=== PATIENT | male | born 1965 | race Caucasian/White ===

== ENCOUNTER 2018-08-03 18:49 | Inpatient (IN) | payer MEDICAID, MEDICARE, SELFPAY ==
[~2018-08-03] VITALS: Ht 182.9 cm; Wt 72.0 kg
[2018-08-03] MEDS ORDERED: ASPIRIN 81 MG TABLET EC ONE (19:06)
[2018-08-03] MEDS ORDERED: ASPIRIN 81 MG TABLET CHEW PO ONE (19:30)
[2018-08-03 19:58] LABS: ALANINE AMINOTRANSFERASE 77 U/L (12-78); ALBUMIN 3.1 g/dL (3.4-5.0); ANION GAP 6 mmol/L (5-15); CALCIUM 8.2 mg/dL (8.5-10.1); CHLORIDE 113 mmol/L (98-107); CREATININE 0.62 mg/dL (0.7-1.3)
[2018-08-03 20:00] LABS: MEAN CORPUSCULAR HEMOGLOBIN 33.2 pg (27.5-34.5); MEAN CORPUSCULAR HGB CONC 33.8 g/dL (33.2-36.2); MEAN CORPUSCULAR VOLUME 98.1 fL (81-97); MEAN PLATELET VOLUME 8.6 fL (7.4-10.4); PLATELET COUNT 220 x10^3/uL (130-400); RED BLOOD COUNT 4.31 x10^6/uL (4.38-5.82); RED CELL DISTRIBUTION WIDTH 13.9 % (9.4-14.8)
[2018-08-03 20:02] LABS: ALKALINE PHOSPHATASE 64 U/L (45-117); BILIRUBIN,TOTAL 0.1 mg/dL (0.2-1.0); MD YES; TOTAL PROTEIN 7.1 g/dL (6.4-8.2)
[2018-08-03 20:04] LABS: <RBC MORPHOLOGY> NORMAL; BAND#(MANUAL) 0.04 x10^3/uL; BANDS%(MANUAL) 1 % (0-7); EOS#(MANUAL) 0.26 x10^3/uL (0.0-0.4); EOS% (MANUAL) 6 % (1-7); LYMPH#(MANUAL) 1.76 x10^3/uL (1-3.4); LYMPHS% (MANUAL) 40 % (22-44); MONOS#(MANUAL) 0.44 x10^3/uL (0.3-2.7); MONOS% (MANUAL) 10 % (2-9); REACTIVE LYMPHS # (MANUAL) 0.13 x10^3/uL (0-0); REACTIVE LYMPHS % (MANUAL) 3 % (0-0); SEG#(MANUAL) 1.76 x10^3/uL (1.8-6.8); SEGS% (MANUAL) 40 % (42-75)
[2018-08-03 20:05] LABS: <PLATELET ESTIMATE> ADEQUATE; SMALL PLATELETS 1+
[2018-08-03 20:09] LABS: TROPONIN I 0.227 ng/mL (0.000-0.045)
[2018-08-03] MEDS ORDERED: SODIUM CHLORIDE FLUSH 10ML SYR IVF ONE (20:30)
[2018-08-03] MEDS ORDERED: SODIUM CHLORIDE FLUSH 10ML SYR IVF PRN (21:00)
[2018-08-03] MEDS ORDERED: ONDANSETRON ODT 4 MG PO PRN (21:30)
[2018-08-03] MEDS ORDERED: NITROGLYCERIN 0.4 MG BOTTLE (25 TABS) SL PRN (21:30)
[2018-08-03] MEDS ORDERED: ENOXAPARIN 80 MG/0.8 ML SQ ONE (21:30)
[2018-08-03] MEDS ORDERED: POLYETHYLENE GLYCOL 17 GM PACKET PO PRN (21:30)
[2018-08-03] MEDS ORDERED: morphine SULFATE 10 MG/ML, 1ML IVPush PRN (21:30)
[2018-08-03] MEDS ORDERED: BISACODYL 10 MG SUPP PR PRN (21:30)
[2018-08-03] MEDS: NICOTINE 14MG/24 HR PATCH.TD24 TD SCH (21:48)
[2018-08-03 21:49] VITALS: BP 128/94
[2018-08-03] MEDS: SODIUM CHLORIDE FLUSH 10ML SYR IVF SCH (21:49)
[2018-08-03 22:11] LABS: FOLATE LEVEL 13.1 ng/mL (3.1-17.5)
[2018-08-04] VITALS (7 sets, daily range): BP systolic 106–139; BP diastolic 74–88
[2018-08-04] MEDS: ACETAMINOPHEN 325 MG TABLET PO PRN ×2 (01:19→09:56)
[2018-08-04 02:15] LABS: TROPONIN I 0.228 ng/mL (0.000-0.045)
[2018-08-04] MEDS ORDERED: DILTIAZEM 5 MG/ML, 10ML IVPush ONE (02:30)
[2018-08-04] MEDS ORDERED: DILTIAZEM 5 MG/ML, 10ML IV ONE (02:30)
[2018-08-04 02:35] LABS: ALANINE AMINOTRANSFERASE 69 U/L (12-78); ALBUMIN 2.9 g/dL (3.4-5.0); ANION GAP 8 mmol/L (5-15); CHLORIDE 113 mmol/L (98-107); CHOLESTEROL, TOTAL 156 mg/dL (140-239); CREATININE 0.57 mg/dL (0.7-1.3)
[2018-08-04 02:45] LABS: ALKALINE PHOSPHATASE 57 U/L (45-117); CHOL/HDL RATIO 2.1; HDL CHOL % 49 % (26-37); HDL CHOLESTEROL (DIRECT) 76 mg/dL (40-60); LDL CHOLESTEROL,CALCULATED 63 mg/dL (54-169); LDL/HDL RATIO 0.8 (0.5-3.0); TOTAL PROTEIN 6.7 g/dL (6.4-8.2); TRIGLYCERIDES 83 mg/dL (50-200); VLDL CHOLESTEROL 17 mg/dL (0-25)
[2018-08-04 02:46] LABS: BILIRUBIN,TOTAL < 0.1 mg/dL (0.2-1.0)
[2018-08-04 02:53] LABS: MEAN CORPUSCULAR HEMOGLOBIN 32.3 pg (27.5-34.5); MEAN CORPUSCULAR HGB CONC 33.1 g/dL (33.2-36.2); MEAN CORPUSCULAR VOLUME 97.8 fL (81-97); MEAN PLATELET VOLUME 9.2 fL (7.4-10.4); PLATELET COUNT 217 x10^3/uL (130-400); RED BLOOD COUNT 4.14 x10^6/uL (4.38-5.82)
[2018-08-04 03:08] LABS: MD YES
[2018-08-04 03:14] LABS: <PLATELET ESTIMATE> ADEQUATE; <RBC MORPHOLOGY> NORMAL; BASOS#(MANUAL) 0.04 x10^3/uL (0-0.1); BASOS% (MANUAL) 1 % (0-1); EOS#(MANUAL) 0.26 x10^3/uL (0.0-0.4); EOS% (MANUAL) 6 % (1-7); LYMPH#(MANUAL) 2.16 x10^3/uL (1-3.4); LYMPHS% (MANUAL) 49 % (22-44); MONOS#(MANUAL) 0.35 x10^3/uL (0.3-2.7); MONOS% (MANUAL) 8 % (2-9); REACTIVE LYMPHS # (MANUAL) 0.18 x10^3/uL (0-0); REACTIVE LYMPHS % (MANUAL) 4 % (0-0); SEG#(MANUAL) 1.41 x10^3/uL (1.8-6.8); SEGS% (MANUAL) 32 % (42-75)
[2018-08-04 03:15] LABS: SMALL PLATELETS 1+
[2018-08-04] MEDS ORDERED: DILTIAZEM 125 MG in SODIUM CHLORIDE 0.9% 100 ML IV SCH (03:30)
[2018-08-04] MEDS ORDERED: DILTIAZEM 5 MG/ML, 5ML IV ONE (03:30)
[2018-08-04] MEDS ORDERED: CARVEDILOL 3.125 MG TABLET ONE (03:47)
[2018-08-04] MEDS: CARVEDILOL 3.125 MG TABLET PO SCH ×2 (06:02→17:23)
[2018-08-04 08:44] LABS: TROPONIN I 0.228 ng/mL (0.000-0.045)
[2018-08-04] MEDS ORDERED: REGADENOSON 0.4 MG/5 ML SYRINGE ONE (08:47)
[2018-08-04] MEDS ORDERED: LORazepam 0.5MG TABLET PO PRN (09:00)
[2018-08-04] MEDS ORDERED: LORazepam 2 MG/ML, 1ML IV PRN ×4 (09:00)
[2018-08-04] MEDS ORDERED: LORazepam 1MG TABLET PO PRN ×3 (09:00)
[2018-08-04] MEDS ORDERED: DIGOXIN 0.25 MG/ML, 2ML IVPush ONE (09:30)
[2018-08-04] MEDS: SENNA/DOCUSATE TABLET PO SCH (09:31)
[2018-08-04] MEDS: methylPREDNISolone SOD SUCC 125 MG/2 ML IVPush SCH ×2 (09:31→17:24)
[2018-08-04] MEDS: FOLIC ACID 1 MG TABLET PO SCH (09:32)
[2018-08-04] MEDS: THIAMINE 100MG TABLET PO SCH (09:32)
[2018-08-04] MEDS ORDERED: ALBUTEROL/IPRATROPIUM 2.5MG/0.5MG, 3 ML ONE (09:32)
[2018-08-04] MEDS: ASPIRIN 81 MG TABLET CHEW PO SCH (09:32)
[2018-08-04] MEDS: MULTIVITAMIN 1 TABLET PO SCH (09:32)
[2018-08-04] MEDS: SODIUM CHLORIDE FLUSH 10ML SYR IVF SCH ×2 (09:32→20:43)
[2018-08-04] MEDS: DILTIAZEM 125 MG in SODIUM CHLORIDE 0.9% 100 ML IV SCH ×2 (09:33→15:23)
[2018-08-04] MEDS: ALBUTEROL/IPRATROPIUM 2.5MG/0.5MG, 3 ML NPPB SCH ×3 (11:00→19:45)
[2018-08-04] MEDS: DOXYCYCLINE 100MG TABLET PO SCH ×2 (13:42→20:43)
[2018-08-04] MEDS: ENOXAPARIN 80 MG/0.8 ML SQ SCH (15:25)
[2018-08-04] MEDS: NICOTINE 14MG/24 HR PATCH.TD24 TD SCH (20:44)
[2018-08-05 00:30] VITALS: BP 134/81
[2018-08-05] MEDS: ALBUTEROL/IPRATROPIUM 2.5MG/0.5MG, 3 ML NPPB SCH ×5 (00:34→21:15)
[2018-08-05] MEDS: methylPREDNISolone SOD SUCC 125 MG/2 ML IVPush SCH ×2 (01:20→08:41)
[2018-08-05] MEDS: ACETAMINOPHEN 325 MG TABLET PO PRN ×2 (01:29→22:02)
[2018-08-05] MEDS: DILTIAZEM 125 MG in SODIUM CHLORIDE 0.9% 100 ML IV SCH (03:42)
[2018-08-05] MEDS: ENOXAPARIN 80 MG/0.8 ML SQ SCH ×2 (03:43→15:33)
[2018-08-05 05:23] VITALS: BP 126/73
[2018-08-05] MEDS: CARVEDILOL 3.125 MG TABLET PO SCH ×2 (05:25→17:30)
[2018-08-05 06:08] LABS: ALBUMIN 2.9 g/dL (3.4-5.0); ANION GAP 8 mmol/L (5-15); CALCIUM 8.1 mg/dL (8.5-10.1); CHLORIDE 108 mmol/L (98-107)
[2018-08-05 06:12] LABS: ALANINE AMINOTRANSFERASE 51 U/L (12-78); ALKALINE PHOSPHATASE 52 U/L (45-117); BILIRUBIN,TOTAL 0.2 mg/dL (0.2-1.0); CREATININE 0.54 mg/dL (0.7-1.3); TOTAL PROTEIN 6.8 g/dL (6.4-8.2)
[2018-08-05 06:18] LABS: MEAN CORPUSCULAR HEMOGLOBIN 33.1 pg (27.5-34.5); MEAN CORPUSCULAR HGB CONC 33.6 g/dL (33.2-36.2); MEAN CORPUSCULAR VOLUME 98.6 fL (81-97); MEAN PLATELET VOLUME 9.6 fL (7.4-10.4); PLATELET COUNT 239 x10^3/uL (130-400); RED BLOOD COUNT 4.08 x10^6/uL (4.38-5.82); RED CELL DISTRIBUTION WIDTH 13.7 % (9.4-14.8)
[2018-08-05 06:44] LABS: MD YES
[2018-08-05 07:05] LABS: BAND#(MANUAL) 0.15 x10^3/uL; BANDS%(MANUAL) 2 % (0-7)
[2018-08-05 07:06] LABS: <RBC MORPHOLOGY> NORMAL; LYMPH#(MANUAL) 0.74 x10^3/uL (1-3.4); LYMPHS% (MANUAL) 10 % (22-44); SEG#(MANUAL) 6.51 x10^3/uL (1.8-6.8); SEGS% (MANUAL) 88 % (42-75)
[2018-08-05 07:07] LABS: <PLATELET ESTIMATE> ADEQUATE; <PLT MORPHOLOGY> NORMAL PLT MORPH
[2018-08-05 07:14] VITALS: BP 138/86
[2018-08-05] MEDS: MULTIVITAMIN 1 TABLET PO SCH (08:41)
[2018-08-05] MEDS: DOXYCYCLINE 100MG TABLET PO SCH ×2 (08:41→19:38)
[2018-08-05] MEDS: FOLIC ACID 1 MG TABLET PO SCH (08:41)
[2018-08-05] MEDS: SENNA/DOCUSATE TABLET PO SCH (08:41)
[2018-08-05] MEDS: THIAMINE 100MG TABLET PO SCH (08:41)
[2018-08-05] MEDS: ASPIRIN 81 MG TABLET CHEW PO SCH (08:41)
[2018-08-05] MEDS: SODIUM CHLORIDE FLUSH 10ML SYR IVF SCH (08:42)
[2018-08-05 12:25] VITALS: BP 105/64
[2018-08-05 19:04] VITALS: BP 122/76
[2018-08-05] MEDS: DILTIAZEM 120 MG CAP.ER.12H PO SCH (19:38)
[2018-08-05] MEDS: NICOTINE 14MG/24 HR PATCH.TD24 TD SCH (19:39)
[2018-08-06] MEDS: ENOXAPARIN 80 MG/0.8 ML SQ SCH (03:24)
[2018-08-06] MEDS: SODIUM CHLORIDE FLUSH 10ML SYR IVF SCH ×3 (03:25→20:23)
[2018-08-06 03:40] VITALS: BP 156/85
[2018-08-06] MEDS: CARVEDILOL 3.125 MG TABLET PO SCH ×2 (05:28→17:43)
[2018-08-06 06:30] VITALS: BP 95/61
[2018-08-06] MEDS: ALBUTEROL/IPRATROPIUM 2.5MG/0.5MG, 3 ML NPPB SCH ×4 (07:00→19:08)
[2018-08-06 08:57] VITALS: BP 130/90
[2018-08-06] MEDS: SENNA/DOCUSATE TABLET PO SCH (09:00)
[2018-08-06] MEDS: THIAMINE 100MG TABLET PO SCH (09:12)
[2018-08-06] MEDS: DOXYCYCLINE 100MG TABLET PO SCH ×2 (09:12→20:22)
[2018-08-06] MEDS: FOLIC ACID 1 MG TABLET PO SCH (09:12)
[2018-08-06] MEDS: ASPIRIN 81 MG TABLET CHEW PO SCH (09:13)
[2018-08-06] MEDS: DILTIAZEM 120 MG CAP.ER.12H PO SCH ×2 (09:13→20:23)
[2018-08-06] MEDS: MULTIVITAMIN 1 TABLET PO SCH (09:13)
[2018-08-06 14:17] VITALS: BP 125/78
[2018-08-06] MEDS: LISINOPRIL 5 MG TABLET PO SCH (14:18)
[2018-08-06] MEDS ORDERED: RIVAROXABAN 20 MG TABLET PO SCH (17:00)
[2018-08-06 19:30] VITALS: BP 112/75
[2018-08-06] MEDS: NICOTINE 14MG/24 HR PATCH.TD24 TD SCH (20:23)
[2018-08-07 01:14] VITALS: BP 153/81
[2018-08-07] MEDS: ACETAMINOPHEN 325 MG TABLET PO PRN (05:47)
[2018-08-07] MEDS: CARVEDILOL 3.125 MG TABLET PO SCH (05:47)
[2018-08-07] MEDS: ALBUTEROL/IPRATROPIUM 2.5MG/0.5MG, 3 ML NPPB SCH ×2 (06:45→10:35)
[2018-08-07 07:16] VITALS: BP 148/95
[2018-08-07] MEDS: SODIUM CHLORIDE FLUSH 10ML SYR IVF SCH (08:06)
[2018-08-07] MEDS: SENNA/DOCUSATE TABLET PO SCH (08:06)
[2018-08-07] MEDS: MULTIVITAMIN 1 TABLET PO SCH (08:07)
[2018-08-07] MEDS: DILTIAZEM 120 MG CAP.ER.12H PO SCH (08:07)
[2018-08-07] MEDS: FOLIC ACID 1 MG TABLET PO SCH (08:07)
[2018-08-07] MEDS: THIAMINE 100MG TABLET PO SCH (08:08)
[2018-08-07] MEDS: DOXYCYCLINE 100MG TABLET PO SCH (08:08)
[2018-08-07] MEDS: LISINOPRIL 5 MG TABLET PO SCH (08:08)
[2018-08-07] MEDS: ASPIRIN 81 MG TABLET CHEW PO SCH (08:08)
[2018-08-07] MEDS ORDERED: MULT1TAB60 PO (10:02)
[2018-08-07] MEDS ORDERED: DOXY100T PO (10:02)
[2018-08-07] MEDS ORDERED: RIVA20TA PO (10:02)
[2018-08-07] MEDS ORDERED: DILT120C11 PO (10:02)
[2018-08-07] MEDS ORDERED: THIA100T67 PO (10:02)
[2018-08-07] MEDS ORDERED: PRED10TA PO (10:02)
[2018-08-07] MEDS ORDERED: CARV3.1212 PO (10:02)
[2018-08-07] MEDS ORDERED: FOLI-17 PO (10:02)
[2018-08-07] MEDS ORDERED: LISI5TAB7 PO (10:02)
[2018-08-07] MEDS ORDERED: ASPI-515 PO (10:02)
[2018-08-07] MEDS ORDERED: ALBU6.7H INH (10:03)
== END 2018-08-07 13:22 | disposition home or self-care (01) | DRG 189 ==
LOC: ED 19:13 → EDIP 20:33 → 5SO 21:39 → DCLOUNGE 08-07 12:57
PROVIDERS: ADMIT Internal Medicine; ATTEND Internal Medicine
DX: J96.01 Acute respiratory failure with hypoxia (principal); D68.69 Other thrombophilia; E44.1 Mild protein-calorie malnutrition; I42.9 Cardiomyopathy, unspecified; I50.20 Unspecified systolic (congestive) heart failure; J44.1 Chronic obstructive pulmonary disease with (acute) exacerbation; D75.89 Other specified diseases of blood and blood-forming organs; F10.229 Alcohol dependence with intoxication, unspecified; F12.90 Cannabis use, unspecified, uncomplicated; M54.30 Sciatica, unspecified side; F17.210 Nicotine dependence, cigarettes, uncomplicated; I11.0 Hypertensive heart disease with heart failure; I48.0 Paroxysmal atrial fibrillation; Z59.0 Homelessness; Z79.82 Long term (current) use of aspirin; Z79.899 Other long term (current) drug therapy; Z79.01 Long term (current) use of anticoagulants; Z68.21 Body mass index [BMI] 21.0-21.9, adult
CPT/HCPCS: 36415; 99285; J7620; 71046; 78452; 80053; 80061; 80307; 82607; 82746; 83735; 84439; 84443; 84484; 85025; 93005; 93017; 93306; 94640; 96372; G0378; J1650; J2785; A9502; C9898; J1160; J2930; J7512

== ENCOUNTER 2018-09-30 16:07 | Emergency (ER) | payer MEDICAID ==
[~2018-09-30] VITALS: Ht 182.9 cm; Wt 73.0 kg
[~2018-09-30 16:07] MED LIST: ALBU6.7H INH; ASPI-515 PO; CARV3.1212 PO; DILT120C11 PO; DOXY100T PO; FOLI-17 PO; LISI5TAB7 PO; MULT1TAB60 PO; PRED10TA PO; RIVA20TA PO; THIA100T67 PO
[2018-09-30 19:38] VITALS: BP 156/106
== END 2018-09-30 19:40 | disposition home or self-care (01) ==
LOC: ED 16:44
DX: S09.90XA Unspecified injury of head, initial encounter (principal); F10.20 Alcohol dependence, uncomplicated; J44.9 Chronic obstructive pulmonary disease, unspecified; I10 Essential (primary) hypertension; W01.0XXA Fall on same level from slipping, tripping and stumbling without subsequent striking against object, initial encounter; Y93.89 Activity, other specified; Y92.89 Other specified places as the place of occurrence of the external cause; Y99.8 Other external cause status
CPT/HCPCS: 70450; 99284

== ENCOUNTER 2018-10-14 20:11 | Emergency (ER) | payer MEDICAID ==
[~2018-10-14] VITALS: Ht 175.3 cm; Wt 80.0 kg
[~2018-10-14 20:11] MED LIST changes: +ALBU8.5H8 INH; +APIX5TAB PO; +DILT120T3 PO; +PRED20TA PO
--- NOTE | 2018-10-14 20:19 | NUR ---
PT BIB [facility] C/O CP AND SOBx2 MONTHS AND STATES "I HAVE ANXIETY AND IT FEELS LIKE ANXIETY." PT UNSTABLE ON FEET AND ADMITS TO GROSS ETOH INTOXICATION TONIGHT OF "TOO MANY DRINKS". NEURO OTHERWISE INTACT. A+Ox4. STATES CP OF BURING AND ACHING IN LEFT SIDE OF CHEST AND BACK. DENIES ANY OTHER SYMPTOMS. STATES HX OF GA AND UNCONTROLLED HTN. ALL MONITORING APPLIED. VSS. CALL LIGHT WITHIN REACH. AWAITING MD ASSESSMENT.
[2018-10-14] MEDS ORDERED: methylPREDNISolone SOD SUCC 125 MG/2 ML ONE (20:23)
[2018-10-14] MEDS ORDERED: ALBUTEROL SULFATE 2.5 MG/3 ML ONE (20:29)
[2018-10-14] MEDS ORDERED: ALBUTEROL SULFATE 2.5 MG/3 ML NPPB ONE (20:30)
[2018-10-14] MEDS ORDERED: methylPREDNISolone SOD SUCC 125 MG/2 ML IVP ONE (20:30)
[2018-10-14 20:51] LABS: MEAN CORPUSCULAR HEMOGLOBIN 32.4 pg (27.5-34.5); MEAN CORPUSCULAR HGB CONC 33.7 g/dL (33.2-36.2); MEAN CORPUSCULAR VOLUME 96.2 fL (81-97); MEAN PLATELET VOLUME 8.1 fL (7.4-10.4); PLATELET COUNT 347 x10^3/uL (130-400); RED BLOOD COUNT 4.69 x10^6/uL (4.38-5.82); RED CELL DISTRIBUTION WIDTH 15.4 % (9.4-14.8)
[2018-10-14 20:52] LABS: ALBUMIN 3.2 g/dL (3.4-5.0); ANION GAP 6 mmol/L (5-15); CALCIUM 8.1 mg/dL (8.5-10.1); CHLORIDE 113 mmol/L (98-107); CREATININE 0.56 mg/dL (0.7-1.3)
[2018-10-14 20:56] LABS: TROPONIN I 0.061 ng/mL (0.000-0.045)
[2018-10-14 21:10] LABS: MD YES
[2018-10-14 21:12] LABS: BASOS#(MANUAL) 0.18 x10^3/uL (0-0.1); BASOS% (MANUAL) 4 % (0-1); EOS#(MANUAL) 0.18 x10^3/uL (0.0-0.4); EOS% (MANUAL) 4 % (1-7); LYMPH#(MANUAL) 2.38 x10^3/uL (1-3.4); LYMPHS% (MANUAL) 54 % (22-44); MONOS#(MANUAL) 0.22 x10^3/uL (0.3-2.7); MONOS% (MANUAL) 5 % (2-9); SEG#(MANUAL) 1.45 x10^3/uL (1.8-6.8); SEGS% (MANUAL) 33 % (42-75)
[2018-10-14 21:14] LABS: <PLATELET ESTIMATE> ADEQUATE; <RBC MORPHOLOGY> NORMAL; LARGE PLATELETS 1+
--- NOTE | 2018-10-14 21:29 | NUR ---
PT STARTING TO DESAT WHILE SLEEPING TO MID 80'S. PUT ON 2 L NC AND BETWEEN 91-97% WHILE SLEEPING. OTHER VSS. CALL LIGHT WITHIN REACH. AWAITING TROP RECHECK.
--- NOTE | 2018-10-14 22:29 | NUR ---
PT SLEEPING COMFORTABLY ON GURNEY. RR EVEN AND UNLABORED. NADN. EASILY ROUSABLE TO NAME. CALL LIGHT WITHIN REACH. VSS. AWAITING TROP RECHECK.
[2018-10-14 23:34] VITALS: BP 130/71
--- NOTE | 2018-10-14 23:46 | NUR ---
AWAITING TROP RESULTS.
[2018-10-15 00:02] LABS: TROPONIN I 0.059 ng/mL (0.000-0.045)
--- NOTE | 2018-10-15 00:22 | NUR ---
PT AMBULATES W/ STEADY GAIT AT THIS TIME. AWARE. AWAITING D/C PAPERWORK.
--- NOTE | 2018-10-15 00:48 | NUR ---
TASK RN: PT RESTING COMFORTABLY KATIE HANKINS NOTED. PT ARROUSABLE EASILY TO VOICE AND LIGHT PHYSICAL STIM. PT NON-TREMULOUS, SPEECH CLEAR AND A&OX4. DC EDUCATION PROVIDED, PT DEMONSTRATES UNDERSTANDING. PT AMBULATED STEADILY TO DC WITH RN AND REPORTS THAT HE WILL BE WALKING TO RECORD STRE[address] ASSISTED. PT DRESSED APPROPRIATELY FOR WEATHER.
== END 2018-10-15 00:51 | disposition home or self-care (01) ==
LOC: ED 23:21
DX: J44.1 Chronic obstructive pulmonary disease with (acute) exacerbation (principal); F10.220 Alcohol dependence with intoxication, uncomplicated; Z72.89 Other problems related to lifestyle; I11.0 Hypertensive heart disease with heart failure; I50.20 Unspecified systolic (congestive) heart failure; I48.91 Unspecified atrial fibrillation
CPT/HCPCS: 36415; 71045; 80048; 80307; 82040; 84484; 85025; 93005; 94640; 96374; 99284; J2930; J7613

== ENCOUNTER 2018-11-04 15:27 | Emergency (ER) | payer MEDICAID ==
[~2018-11-04] VITALS: Ht 182.9 cm; Wt 75.0 kg
[2018-11-04 15:38] VITALS: BP 114/67
--- NOTE | 2018-11-04 16:00 | NUR ---
BIB [facility]. C/O LLE numbness. PLaced on NIBP and pulse ox. Will continue to monitor.
[2018-11-04] MEDS ORDERED: GABAPENTIN 300 MG CAPSULE PO ONE (16:30)
[2018-11-04] MEDS ORDERED: GABAPENTIN 300 MG CAPSULE ONE (16:45)
--- NOTE | 2018-11-04 16:50 | NUR ---
Gabapentin admin No other needs.
[2018-11-04] MEDS ORDERED: HYDROcodone/APAP 5/325 TABLET ONE (17:09)
[2018-11-04] MEDS ORDERED: HYDROcodone/APAP 5/325 TABLET PO ONE (17:30)
--- NOTE | 2018-11-04 18:01 | NUR ---
Patient/Caregiver given discharge instructions and they have confirmed that they understand the instructions. Patient ambulatory with steady gait. Taken out in wheelchair per patient request. Provided with cab voucher.
== END 2018-11-04 18:02 | disposition home or self-care (01) ==
LOC: ED 16:58
DX: M79.605 Pain in left leg (principal); M54.16 Radiculopathy, lumbar region; I25.2 Old myocardial infarction; I48.91 Unspecified atrial fibrillation; J44.9 Chronic obstructive pulmonary disease, unspecified; I11.0 Hypertensive heart disease with heart failure; I50.20 Unspecified systolic (congestive) heart failure
CPT/HCPCS: 72110; 99283

== ENCOUNTER 2018-11-29 14:36 | Emergency (ER) | payer MEDICAID ==
[~2018-11-29] VITALS: Ht 182.9 cm; Wt 75.0 kg
[2018-11-29 15:17] LABS: BASOPHILS # (AUTO) 0.05 x10^3/uL (0-0.1); BASOPHILS % (AUTO) 1 % (0-1); EOSINOPHILS # (AUTO) 0.14 x10^3/uL (0-0.4); EOSINOPHILS % (AUTO) 2 % (1-7); LYMPHOCYTES # (AUTO) 1.64 x10^3/uL (1-3.4); LYMPHOCYTES % (AUTO) 21 % (22-44); MD NO; MEAN CORPUSCULAR HEMOGLOBIN 31.8 pg (27.5-34.5); MEAN CORPUSCULAR HGB CONC 33.1 g/dL (33.2-36.2); MEAN PLATELET VOLUME 8.4 fL (7.4-10.4); MONOCYTES # (AUTO) 0.73 x10^3/uL (0.2-0.8); MONOCYTES % (AUTO) 9 % (2-9); NEUTROPHILS # (AUTO) 5.42 x10^3/uL (1.8-6.8); NEUTROPHILS % (AUTO) 68 % (42-75); PLATELET COUNT 246 x10^3/uL (130-400); RED BLOOD COUNT 5.25 x10^6/uL (4.38-5.82); RED CELL DISTRIBUTION WIDTH 15.2 % (9.4-14.8)
[2018-11-29 15:29] LABS: ALANINE AMINOTRANSFERASE 29 U/L (12-78); ALBUMIN 3.3 g/dL (3.4-5.0); ANION GAP 8 mmol/L (5-15); CALCIUM 7.9 mg/dL (8.5-10.1); CHLORIDE 109 mmol/L (98-107); CREATININE 0.71 mg/dL (0.7-1.3)
[2018-11-29] MEDS ORDERED: DIPH,PERTUSS(ACELL),TET VAC/PF 0.5 ML IM-VACC ONE ×2 (15:30→15:31)
[2018-11-29] MEDS ORDERED: LIDOCAINE 1%, 10ML INFIL ONE (15:30)
[2018-11-29] MEDS ORDERED: LIDOCAINE-MPF 1%, 5ML ONE (15:31)
[2018-11-29 15:33] LABS: ALKALINE PHOSPHATASE 56 U/L (45-117); BILIRUBIN,TOTAL 0.2 mg/dL (0.2-1.0); TOTAL PROTEIN 7.5 g/dL (6.4-8.2)
--- NOTE | 2018-11-29 15:37 | NUR ---
PT SLEEPING IN GURNEY, RR EVEN AND UNLABORED. PT ON CONT SPO2 AND BP MONITOR, VSS. PT DENIES PAIN OR NEEDS ATT.
--- NOTE | 2018-11-29 15:37 | NUR ---
PT RECEIVED TETANUS SHOT PER [facility]
--- NOTE | 2018-11-29 17:23 | NUR ---
RECEIVED REPORT FROM MITRA VALADEZ. PT RESTING ON [facility]. NADN. PAZ.
--- NOTE | 2018-11-29 17:31 | NUR ---
PT CHART REVIEWED AND PLACED FOR RECHECK.
--- NOTE | 2018-11-29 17:39 | NUR ---
PT TESTED ON RA. PT SATING 78% RA. PLACED ON O2. PT DOES NOT HAVE STEADY GAIT AT THIS TIME.
--- NOTE | 2018-11-29 18:50 | NUR ---
PT REPORT FROM LUCY MANRIQUEZ. THIS RN TO ASSUME CARE OF PT. PT RESTING COMFORTABLY ON [place]. NADN. RR EVEN AND UNLABORED.
--- NOTE | 2018-11-29 18:51 | NUR ---
REPORT GIVEN TO PRAVEENA TAYLOR RN.
[2018-11-29 18:52] VITALS: BP 115/82
--- NOTE | 2018-11-29 18:55 | NUR ---
PT AMBULATORY TO RESTROOM AND BACK TO ROOM W/ STEADY GAIT.
== END 2018-11-29 19:33 | disposition home or self-care (01) ==
LOC: ED 14:58
DX: S01.111A Laceration without foreign body of right eyelid and periocular area, initial encounter (principal); S09.8XXA Other specified injuries of head, initial encounter; F10.20 Alcohol dependence, uncomplicated; I25.2 Old myocardial infarction; J44.9 Chronic obstructive pulmonary disease, unspecified; I48.91 Unspecified atrial fibrillation; I10 Essential (primary) hypertension; X58.XXXA Exposure to other specified factors, initial encounter; Y93.89 Activity, other specified; Y92.89 Other specified places as the place of occurrence of the external cause; Y99.8 Other external cause status
CPT/HCPCS: 36415; 70450; 80053; 80307; 85025; 90471; 90715; 93005